=== PATIENT | female | born 1930 | race Caucasian/White ===

== ENCOUNTER 2017-09-27 12:41 | Inpatient (IN) | payer OTHER, MEDICARE ==
[~2017-09-27] VITALS: Ht 157.5 cm; Wt 44.9 kg
--- NOTE | 2017-09-27 13:11 | EMERGENCY ROOM VISIT NOTE ---
History Report prepared by Baljeet: David Ying Under the Supervision of: Dr. Poncho Esteban D.O. First contact with patient: 12:51 Chief Complaint: STROKE SYMPTOMS Stated Complaint: STROKE SYMPTOMS Nursing Triage Summary: pt having tia or stroke sx fell at 1100 today was unresponsive for approx 10 minutes after falling, pt having asphasia after falling. hit bridge of nose on step no loc. History of Present Illness The patient is an 87 year old female with a history of a TIA who presents to the Emergency Room via EMS with an episode of stroke symptoms that occurred around 2 hours ago. Per EMS, they were called to the patient's home for a fall, and the patient was noted by the daughter to be unresponsive and confused, but when EMS arrived, the patient was completely awake, alert, and oriented. The patient states that she was completely fine last night, without any headaches. She says that she woke up at her normal time this morning, and got dressed and had breakfast without difficulty. She notes that around 3 hours ago she then went downstairs to go to the bathroom and get washed up. The patient says as she was going down the stairs, while on the second step to the bottom, the towel on her shoulder fell and threw her off-balance, and then the patient fell onto the carpet floor. She states that she hurt her left hand and nose on the fall, but now only the left hand is bothering her. She denies any nose bleeds on the fall. The patient states that she got up alright, and then got washed up in the bathroom. She says that after being in the bathroom, she was tired so she sat on the chair. However, shortly thereafter, the patient's daughter found the patient sitting on the chair open-eyed and sleeping around 2 hours ago. Per the patient's daughter, she tapped on the patient's cheeks, but the patient remained open-eyed but unresponsive. The patient's breathing was noted to be loud. This episode lasted around 10 to 12 minutes, and was noted to have drool coming out the left side of her face. The patient's daughter called 911 when she found the patient. When the patient came around, the patient started to put words together and could smile, without any facial droop. However, when EMS arrived, the patient became 100%, but per the patient's daughter, the patient seemed "off and not herself". The patient was also noted to have episodes of aphasia, where the wrong words were coming out of the patient's mouth. Currently , the patient is "85% mom" per the patient's daughter, and the patient is back to baseline. The patient denies any headaches, fevers, chills, neck pain, back pain, or hip pain. She notes that she is not on any blood thinners, and takes no medications daily. The patient states that she drinks occasional alcohol. Source of History: patient, family Onset: 2 hours ago Position: other (global - stroke symptoms) Timing: other (episode) Associated Symptoms: No fevers, No chills, No headache, No neck pain, No back pain (or hip pain) Note: Associated symptoms: Fall this morning. Was found by daughter unresponsive, sleeping, with eyes open. Aphasia episodes noted. No facial droop. Review of Systems See HPI for pertinent positives & negatives. A total of 10 systems reviewed and were otherwise negative. Past Medical & Surgical Medical Problems: (1) Macular degeneration (2) TIA (transient ischemic attack) Family History Family history omitted secondary to patient's advanced age. Social History Smoking Status: Never Smoker Smokeless Tobacco Use: No Drug Use: none Housing Status: lives alone Occupation Status: retired Current/Historical Medications Scheduled Multiple Vitamins W/ Minerals (Centrum Silver Adult 50+), 1 TAB PO DAILY Allergies Coded Allergies: Cefazolin (Unverified Adverse Reaction, Intermediate, RASH, 09/27/17) Physical Exam Vital Signs Date Time Temp Pulse Resp B/P (MAP) Pulse Ox O2 Delivery O2 Flow Rate FiO2 09/27/17 18:22 71 18 183/86 96 09/27/17 16:41 73 16 183/86 96 Room Air 09/27/17 14:50 82 18 189/90 95 Room Air 09/27/17 14:50 95 Room Air 09/27/17 12:45 36.4 99 18 188/87 100 Room Air Physical Exam GENERAL: Patient is awake, alert, and in no acute distress. Patient is resting comfortably and showing no signs of anxiety EYES: The conjunctivae are clear. The pupils are round and reactive. EARS, NOSE, MOUTH AND THROAT: There was ecchymosis and swelling over the bridge of the nose. No epistaxis appreciated. NECK: The neck is nontender and supple. There was a bruit noted over the right carotid. No bruit noted over left. RESPIRATORY: Normal respiratory effort is noted there is no evidence of wheezing rhonchi or rales CARDIOVASCULAR: Regular rate and rhythm noted to auscultation. No definite murmur appreciated. GASTROINTESTINAL: The abdomen is soft. Bowel sounds are present in all quadrants. Abdomen is nontender BACK: No midline tenderness or or step-off noted range of motion in flexion extension as well as rotation no signs of muscle spasm noted MUSCULOSKELETAL/EXTREMITIES: There is no evidence of gross deformity full range of motion is noted in the hips and shoulders SKIN: There was ecchymosis and swelling over the left 5th metacarpal. There is no obvious evidence of any rash. There are no petechiae, pallor or cyanosis noted. NEUROLOGIC: Patient is awake alert and oriented x3 strength is symmetric patellar reflexes are 2+ bilaterally Medical Decision & Procedures ER Provider Diagnostic Interpretation: Radiology results as stated below per my review and radiologist interpretation: FACIAL BONES-MXILLOFAC WITHOUT CLINICAL HISTORY: 87 years-old Female presenting with fall. TECHNIQUE: Multidetector CT of the face was performed without the use of intravenous contrast. IV contrast: None. A dose lowering technique was used consistent with the principles of ALARA (as low as reasonably achievable). COMPARISON: None. CT DOSE (mGy.cm): The estimated cumulative dose is 1003.11 mGy.cm. FINDINGS: Surg Rn topogram: Unremarkable. Polypoid mucosal thickening in the left maxillary sinus. Paranasal sinuses and mastoid air cells otherwise clear. Bilateral [place] lenses are absent. Orbits otherwise normal. Remaining soft tissues of the face within normal limits allowing for noncontrast technique. Evidence of a torus palatinus. Degenerative changes of the cervical spine. Limited intracranial evaluation within normal limits. IMPRESSION: No acute osseous injury of the face. Electronically signed by: Heath Kinney M.D. 09/27/2017 1:56 PM Dictated Date/Time: 09/27/2017 1:53 PM HEAD WITHOUT CONTRAST (CT) CLINICAL HISTORY: 87 years-old Female with Stroke. Acute strokelike symptoms TECHNIQUE: Multiple axial CT images of the head were obtained without contrast. A dose lowering technique was utilized adhering to the principles of ALARA. COMPARISON: CT cervical spine of same day. FINDINGS: No acute intracranial hemorrhage, midline shift, intracranial mass, hydrocephalus, territorial ischemia or abnormal extra-axial collection. Mild brain atrophy. Ill-defined areas of low attenuation within the subcortical and periventricular white matter suggests chronic microvascular ischemic changes. Vascular calcifications are seen at the level of the skull base. Focal 4 mm area of low-attenuation of the left lentiform nucleus on image 10 series 2. The calvarium is intact. The paranasal sinuses, mastoid air cells, and middle ear cavities are clear. Prior bilateral cataract repair. IMPRESSION: 1. No acute intracranial hemorrhage, midline shift or territorial ischemia. 2. Mild atrophy with chronic microvascular ischemic changes. 4 mm area of low-attenuation involving the left lentiform nucleus suggests age-indeterminate lacunar infarction. The above report was generated using voice recognition software. It may contain grammatical, syntax or spelling errors. Electronically signed by: Myles Ty M.D. 09/27/2017 1:58 PM Dictated Date/Time: 09/27/2017 1:54 PM L HAND MIN 3 VIEWS ROUTINE CLINICAL HISTORY: Left hand pain status post trauma COMPARISON: None. DISCUSSION: The bones are osteopenic. There is an old distal radial deformity. There are moderate arthritic changes present the level the first carpometacarpal joint, metacarpal phalangeal joints, and interphalangeal joints. There is an acute oblique/spiral fracture of the midshaft of the fifth metacarpal demonstrating 3.7 mm of maximal displacement. IMPRESSION: Acute oblique/spiral fracture involving the midshaft of the fifth metacarpal Electronically signed by: Luisito Banks M.D. 09/27/2017 1:24 PM Dictated Date/Time: 09/27/2017 1:23 PM CHEST ONE VIEW PORTABLE CLINICAL HISTORY: 87 years-old Female presenting with Stroke. TECHNIQUE: Portable upright AP view of the chest was obtained. COMPARISON: None. FINDINGS: Atherosclerosis of aortic arch. Cardiac silhouette normal in size. Mild hyperinflation suggested. Lungs and pleural spaces clear. Scoliotic curvature of the thoracic spine. Degenerative changes of the right shoulder. Upper abdomen normal. IMPRESSION: 1. Mild hyperinflation suggested, which may reflect underlying emphysema. No other evidence of acute cardiopulmonary disease. Electronically signed by: Heath Kinney M.D. 09/27/2017 1:30 PM Dictated Date/Time: 09/27/2017 1:[address] OF THE CERVICAL SPINE CLINICAL HISTORY: Neck pain status post trauma COMPARISON STUDY: No previous studies for comparison. CT DOSE: TECHNIQUE: CT scan of the cervical spine was performed from the skull base to the thoracic inlet. Images are reviewed in the axial, sagittal, and coronal planes. IV contrast was not administered for this examination. A dose lowering technique was utilized adhering to the principles of ALARA. FINDINGS: Visualized portions lung apices reveal no evidence of pneumothorax. There are nonspecific biapical nodular opacities, likely representing areas of apical scarring. The prevertebral soft tissues are normal. No fractures or traumatic subluxations are visualized. There are multilevel degenerative changes. There is fusion of the C7 and T1 posterior elements. There is 3 mm of anterior subluxation of C4 on C5. This is felt to be arthritic. There is a disc osteophyte complex at the C5-6 level. IMPRESSION: No evidence of acute fracture or traumatic subluxation. Electronically signed by: Luisito Banks M.D. 09/27/2017 1:52 PM Dictated Date/Time: 09/27/2017 1:49 PM Laboratory Results 09/27/17 13:23 Red Blood Count 4.34, Mean Corpuscular Volume 89.4, Mean Corpuscular Hemoglobin 30.4, Mean Corpuscular Hemoglobin Concent 34.0, Mean Platelet Volume 8.8, Neutrophils (%) (Auto) 67.7, Lymphocytes (%) (Auto) 18.5, Monocytes (%) (Auto) 11.8, Eosinophils (%) (Auto) 1.4, Basophils (%) (Auto) 0.3, Neutrophils # (Auto ) 5.42, Lymphocytes # (Auto) 1.48, Monocytes # (Auto) 0.94, Eosinophils # (Auto ) 0.11, Basophils # (Auto) 0.02 09/27/17 13:23 Test 09/27/17 13:23 09/27/17 13:48 White Blood Count 7.99 K/uL (4.8-10.8) Red Blood Count 4.34 M/uL (4.2-5.4) Hemoglobin 13.2 g/dL (12.0-16.0) Hematocrit 38.8 % (37-47) Mean Corpuscular Volume 89.4 fL (80-100) Mean Corpuscular Hemoglobin 30.4 pg (25-34) Mean Corpuscular Hemoglobin Concent 34.0 g/dl (32-36) Platelet Count 278 K/uL (130-400) Mean Platelet Volume 8.8 fL (7.4-10.4) Neutrophils (%) (Auto) 67.7 % Lymphocytes (%) (Auto) 18.5 % Monocytes (%) (Auto) 11.8 % Eosinophils (%) (Auto) 1.4 % Basophils (%) (Auto) 0.3 % Neutrophils # (Auto) 5.42 K/uL (1.4-6.5) Lymphocytes # (Auto) 1.48 K/uL (1.2-3.4) Monocytes # (Auto) 0.94 K/uL (0.11-0.59) Eosinophils # (Auto) 0.11 K/uL (0-0.5) Basophils # (Auto) 0.02 K/uL (0-0.2) RDW Standard Deviation 45.8 fL (36.4-46.3) RDW Coefficient of Variation 14.1 % (11.5-14.5) Immature Granulocyte % (Auto) 0.3 % Immature Granulocyte # (Auto) 0.02 K/uL (0.00-0.02) Prothrombin Time 9.7 SECONDS (9.0-12.0) Prothromb Time International Ratio 0.9 (0.9-1.1) Activated Partial Thromboplast Time 20.8 SECONDS (21.0-31.0) Partial Thromboplastin Ratio 0.8 Anion Gap 7.0 mmol/L (3-11) Est Creatinine Clear Calc Drug Dose 45.4 ml/min Estimated GFR () 93.0 Estimated GFR (Non- 80.2 BUN/Creatinine Ratio 26.6 (10-20) Calcium Level 8.9 mg/dl (8.5-10.1) Magnesium Level 2.3 mg/dl (1.8-2.4) Total Creatine Kinase 137 U/L (26-192) Creatine Kinase MB 4.8 ng/ml (0.5-3.6) Creatine Kinase MB Ratio 3.5 (0-3.0) Troponin I < 0.015 ng/ml (0-0.045) Urine Color YELLOW Urine Appearance CLOUDY (CLEAR) Urine pH 8.0 (4.5-7.5) Urine Specific Anna 1.011 (1.000-1.030) Urine Protein NEG (NEG) Urine Glucose (UA) NEG (NEG) Urine Ketones NEG (NEG) Urine Occult Blood NEG (NEG) Urine Nitrite NEG (NEG) Urine Bilirubin NEG (NEG) Urine Urobilinogen NEG (NEG) Urine Leukocyte Esterase NEG (NEG) Urine WBC (Auto) 0 /hpf (0-5) Urine RBC (Auto) 0-4 /hpf (0-4) Urine Hyaline Casts (Auto) 0 /lpf (0-5) Urine Epithelial Cells (Auto) 10-20 /lpf (0-5) Urine Bacteria (Auto) NEG (NEG) Laboratory results per my review. Medications Administered Medications (Trade) Dose Ordered Sig/Gaudencio Route Start Time Stop Time Status Last Admin Dose Admin Aspirin (Aspirin Chew) 324 mg NOW STAT PO 09/27/17 15:24 09/27/17 15:25 DC 09/27/17 15:48 324 MG ECG Indication: weakness Rate (beats per minute): 69 Rhythm: normal sinus Findings: no ectopy, other (no acute ST segment abnormalities) Comparison ECG Date: no prior available ED Course 1252: The patient was evaluated in room A2. A complete history and physical examination were performed. 1437: I reevaluated the patient and talked to her family. 1510: Upon reevaluation, the patient is resting. I discussed results and treatment plan with her. She verbalizes agreement and understanding. The patient will be evaluated for further management and care. 1512: I discussed the patient with Dr. Rubio - [facility] it associate - she will evaluate the patient for further treatment. Medical Decision Differential diagnosis: Etiologies such as metabolic, infection, hypo/hyperglycemia, electrolyte abnormalities, cardiac sources, intracerebral event, toxicologic, neurologic, as well as others were entertained. Nursing notes reviewed. Additional history is obtained from the patient's daughter. The patient is an 87-year-old female who presented to the emergency department for a fall. The patient states that she was walking down her steps when she had a fall. She states she a very dizzy and felt off balance. The patient was seen by her daughter afterwards and she appeared listless and had some degree of dysarthria. The patient presents to the emergency department at this time in her baseline mental status according to her daughter. A stroke alert was not called because the patient did not have symptoms at this time. The patient did have an injury to her left hand and also facial contusion. The patient was given aspirin in the emergency department. I discussed the patient's laboratory and radiographic studies with her. She appears to have either a bruit in her right carotid or a murmur that is being radiated into her neck. It is unclear if this time because I cannot definitely auscultate a murmur over her heart. The patient's family member state that she did have carotid Dopplers over the last few years which she was told were negative. I discussed the patient's condition with her and her family members at this time I do feel she may be having stuttering symptoms of TIA. The patient continues to have no complaint while she is in the emergency apartment. I discussed her condition with the on- call [facility] hospitalist group. They've agreed to evaluate the patient in the emergency department for further management and disposition. Medication Reconcilliation Current Medication List: was personally reviewed by me Blood Pressure Screening Patient's blood pressure: Elevated blood pressure Referred to hospitalist. Consults Time Called: 1510 Consulting Physician: Dr. Ramiro Cerna it associate Returned Call: 1512 I discussed the patient with Dr. Ramiro Cerna it associate - she will evaluate the patient for further treatment. Impression Primary Impression: TIA (transient ischemic attack) Additional Impressions: Fall Facial contusion Fracture of fifth metacarpal bone of left hand Scribe Attestation The scribe's documentation has been prepared under my direction and personally reviewed by me in its entirety. I confirm that the note above accurately reflects all work, treatment, procedures, and medical decision making performed by me. Departure Information Dispostion Being Evaluated By Hospitalist Referrals No Doctor, Assigned (PCP) Patient Instructions My [facility] Stroke History Time Last Known Well Currently asymptomatic Stroke t-PA Criteria Reviewed Does NOT meet criteria for t-PA Reason t-PA Not Given Treatment not indicated Strict Exclusion Criteria Normal neurologic examination Problem Qualifiers Primary Impression: TIA (transient ischemic attack) Transient cerebral ischemia type: unspecified Qualified Codes: G45.9 - Transient cerebral ischemic attack, unspecified Additional Impressions: Fall Encounter type: initial encounter Qualified Codes: W19.XXXA - Unspecified fall, initial encounter Facial contusion Encounter type: initial encounter Qualified Codes: S00.83XA - Contusion of other part of head, initial encounter Fracture of fifth metacarpal bone of left hand Encounter type: initial encounter Fracture type: closed Metacarpal location : unspecified portion of metacarpal Fracture alignment: nondisplaced Qualified Codes: S62.307A - Unspecified fracture of fifth metacarpal bone, left hand, initial encounter for closed fracture
--- NOTE | 2017-09-27 13:25 | DIAGNOSTIC IMAGING REPORT ---
L HAND MIN 3 VIEWS ROUTINE CLINICAL HISTORY: Left hand pain status post trauma COMPARISON: None. DISCUSSION: The bones are osteopenic. There is an old distal radial deformity. There are moderate arthritic changes present the level the first carpometacarpal joint, metacarpal phalangeal joints, and interphalangeal joints. There is an acute oblique/spiral fracture of the midshaft of the fifth metacarpal demonstrating 3.7 mm of maximal displacement. IMPRESSION: Acute oblique/spiral fracture involving the midshaft of the fifth metacarpal Electronically signed by: Luisito Banks M.D. 09/27/2017 1:24 PM Dictated Date/Time: 09/27/2017 1:23 PM
--- NOTE | 2017-09-27 13:31 | DIAGNOSTIC IMAGING REPORT ---
CHEST ONE VIEW PORTABLE CLINICAL HISTORY: 87 years-old Female presenting with Stroke. TECHNIQUE: Portable upright AP view of the chest was obtained. COMPARISON: None. FINDINGS: Atherosclerosis of aortic arch. Cardiac silhouette normal in size. Mild hyperinflation suggested. Lungs and pleural spaces clear. Scoliotic curvature of the thoracic spine. Degenerative changes of the right shoulder. Upper abdomen normal. IMPRESSION: 1. Mild hyperinflation suggested, which may reflect underlying emphysema. No other evidence of acute cardiopulmonary disease. Electronically signed by: Heath Kinney M.D. 09/27/2017 1:30 PM Dictated Date/Time: 09/27/2017 1:29 PM
[2017-09-27 13:48] LABS: BASO % 0.3 %; BASO ABS # 0.02 K/uL (0-0.2); EOS % 1.4 %; EOS ABS # 0.11 K/uL (0-0.5); HEMATOCRIT 38.8 % (37-47); HEMOGLOBIN 13.2 g/dL (12.0-16.0); IG# 0.02 K/uL (0.00-0.02); LYMPH % 18.5 %; LYMPH ABS # 1.48 K/uL (1.2-3.4); MEAN CELL VOLUME 89.4 fL (80-100); MEAN CORPUSCULAR HEMOGLOBIN 30.4 pg (25-34); MEAN PLATELET VOLUME 8.8 fL (7.4-10.4); MONO % 11.8 %; MONO ABS # 0.94 K/uL (0.11-0.59); NEUT % 67.7 %; NEUT ABS # 5.42 K/uL (1.4-6.5); PLATELET COUNT 278 K/uL (130-400); RED CELL DISTRIBUTION WIDTH CV 14.1 % (11.5-14.5); RED CELL DISTRIBUTION WIDTH SD 45.8 fL (36.4-46.3); WHITE BLOOD COUNT 7.99 K/uL (4.8-10.8)
--- NOTE | 2017-09-27 13:53 | DIAGNOSTIC IMAGING REPORT ---
CT OF THE CERVICAL SPINE CLINICAL HISTORY: Neck pain status post trauma COMPARISON STUDY: No previous studies for comparison. CT DOSE: TECHNIQUE: CT scan of the cervical spine was performed from the skull base to the thoracic inlet. Images are reviewed in the axial, sagittal, and coronal planes. IV contrast was not administered for this examination. A dose lowering technique was utilized adhering to the principles of ALARA. FINDINGS: Visualized portions lung apices reveal no evidence of pneumothorax. There are nonspecific biapical nodular opacities, likely representing areas of apical scarring. The prevertebral soft tissues are normal. No fractures or traumatic subluxations are visualized. There are multilevel degenerative changes. There is fusion of the C7 and T1 posterior elements. There is 3 mm of anterior subluxation of C4 on C5. This is felt to be arthritic. There is a disc osteophyte complex at the C5-6 level. IMPRESSION: No evidence of acute fracture or traumatic subluxation. Electronically signed by: Luisito Banks M.D. 09/27/2017 1:52 PM Dictated Date/Time: 09/27/2017 1:49 PM
[2017-09-27 13:56] LABS: INR 0.9 (0.9-1.1); PTT PATIENT 20.8 SECONDS (21.0-31.0)
--- NOTE | 2017-09-27 13:58 | DIAGNOSTIC IMAGING REPORT ---
FACIAL BONES-MXILLOFAC WITHOUT CLINICAL HISTORY: 87 years-old Female presenting with fall. TECHNIQUE: Multidetector CT of the face was performed without the use of intravenous contrast. IV contrast: None. A dose lowering technique was used consistent with the principles of ALARA (as low as reasonably achievable). COMPARISON: None. CT DOSE (mGy.cm): The estimated cumulative dose is 1003.11 mGy.cm. FINDINGS: Gambling Monitor topogram: Unremarkable. Polypoid mucosal thickening in the left maxillary sinus. Paranasal sinuses and mastoid air cells otherwise clear. Bilateral [place] lenses are absent. Orbits otherwise normal. Remaining soft tissues of the face within normal limits allowing for noncontrast technique. Evidence of a torus palatinus. Degenerative changes of the cervical spine. Limited intracranial evaluation within normal limits. IMPRESSION: No acute osseous injury of the face. Electronically signed by: Heath Kinney M.D. 09/27/2017 1:56 PM Dictated Date/Time: 09/27/2017 1:53 PM
--- NOTE | 2017-09-27 13:59 | DIAGNOSTIC IMAGING REPORT ---
HEAD WITHOUT CONTRAST (CT) CLINICAL HISTORY: 87 years-old Female with Stroke. Acute strokelike symptoms TECHNIQUE: Multiple axial CT images of the head were obtained without contrast. A dose lowering technique was utilized adhering to the principles of ALARA. COMPARISON: CT cervical spine of same day. FINDINGS: No acute intracranial hemorrhage, midline shift, intracranial mass, hydrocephalus, territorial ischemia or abnormal extra-axial collection. Mild brain atrophy. Ill-defined areas of low attenuation within the subcortical and periventricular white matter suggests chronic microvascular ischemic changes. Vascular calcifications are seen at the level of the skull base. Focal 4 mm area of low-attenuation of the left lentiform nucleus on image 10 series 2. The calvarium is intact. The paranasal sinuses, mastoid air cells, and middle ear cavities are clear. Prior bilateral cataract repair. IMPRESSION: 1. No acute intracranial hemorrhage, midline shift or territorial ischemia. 2. Mild atrophy with chronic microvascular ischemic changes. 4 mm area of low-attenuation involving the left lentiform nucleus suggests age-indeterminate lacunar infarction. The above report was generated using voice recognition software. It may contain grammatical, syntax or spelling errors. Electronically signed by: Myles Ty M.D. 09/27/2017 1:58 PM Dictated Date/Time: 09/27/2017 1:54 PM
[2017-09-27 14:08] LABS: BLOOD UREA NITROGEN 17 mg/dl (7-18); CALCIUM 8.9 mg/dl (8.5-10.1); CARBON DIOXIDE 28 mmol/L (21-32); CREATININE 0.64 mg/dl (0.60-1.20); GLUCOSE 103 mg/dl (70-99); POTASSIUM 3.7 mmol/L (3.5-5.1); SODIUM 129 mmol/L (136-145)
[2017-09-27 14:13] LABS: CKMB 4.8 ng/ml (0.5-3.6)
[2017-09-27] MEDS ORDERED: ASPIRIN 81 MG CHEW PO STA (15:24)
[2017-09-27] MEDS ORDERED: POLYETHYLENE (MIRALAX) 17 GM PACK PO PRN (16:45)
[2017-09-27] MEDS ORDERED: ONDANSETRON INJ 2 MG/ML 2 ML VIAL IV PRN (16:45)
[2017-09-27] MEDS ORDERED: ALUMINUM/MAGNESIUM/SIMETH (MAALOX MAX) 30 ML UDC PO PRN (16:45)
[2017-09-27] MEDS ORDERED: PHARMACIST DISCHARGE MED REC CONSULT PRN (16:45)
[2017-09-27] MEDS ORDERED: ACETAMINOPHEN 325 MG TAB PO PRN (16:45)
[2017-09-27] MEDS ORDERED: HydrALAZINE HCL 20 MG/ML VIAL IV. PRN (16:45)
[2017-09-27] MEDS ORDERED: MAGNESIUM HYDROXIDE SUSP 30 ML UDC PO PRN (16:45)
[2017-09-27] MEDS ORDERED: PATIENT'S ALLERGY INFO NEEDS ENTERED SCH (17:15)
[2017-09-27] MEDS ORDERED: MULT-845 PO (17:42)
--- NOTE | 2017-09-27 18:11 | History and Physical ---
History & Physical Date & Time of Service: Sep 27, 2017 at 17:56 Chief Complaint: Stroke Symptoms Primary Care Physician: Henok Calero MD History of Present Illness Source: patient, family Ms. Yanez is an 87 year old female with a history of a TIA in May 2017 who presented to [facility] following a ten minute episode of aphasia that occurred after a mechanical fall. She states she was walking down the steps earlier today, when she dropped her towel, and fell down the second step, landing face first onto the floor. She states she was able to get up after this, and reports going about her daily activities. Her daughter reports that later, she found her mother sitting in a chair with her eyes open, but unresponsive. She states that this lasted for approximately 10 minutes. She denies any seizure like activity, urinary or fecal incontinence. She states that after this, she had intermittent aphasia, where Ms. Yanez knew what she wanted to say but was unable to form complete sentences and express herself. She was able to answer questions with appropriate one word responses but not longer sentences. Ms. Yanez states she had a similar episode in May 2017, where she had a 10-15 minute episode of aphasia, where she was unable to express herself clearly despite knowing what she wanted to say. This was diagnosed as a TIA but her PCP. At this time, Ms. Yanez denies headache, focal weakness, double vision, gait difficulties or facial droop. She does report her nose is sore and is swollen after having fallen onto it. Of note, she is currently not on any medications at home. Past Medical/Surgical History Medical Problems: (1) Macular degeneration Status: Chronic (2) TIA (transient ischemic attack) Status: Resolved Social History Smoking Status: Never Smoker Smokeless Tobacco Use: No Drug Use: none Occupational Status: retired Allergies Coded Allergies: Cefazolin (Unverified Adverse Reaction, Intermediate, RASH, 09/27/17) Home Medications Scheduled Multiple Vitamins W/ Minerals (Centrum Silver Adult 50+), 1 TAB PO DAILY Review of Systems Constitutional: No fever, No chills Eyes: No worsening of vision, No eye pain Respiratory: No cough, No sputum, No wheezing, No shortness of breath Cardiovascular: No chest pain Abdomen: No pain, No nausea, No vomiting, No diarrhea Genitourinary - Female: + urinary frequency Neurologic: No memory loss, No weakness, No balance problems Physical Exam Vital Signs Date Time Temp Pulse Resp B/P (MAP) Pulse Ox O2 Delivery O2 Flow Rate FiO2 09/27/17 16:41 73 16 183/86 96 Room Air 09/27/17 14:50 82 18 189/90 95 Room Air 09/27/17 14:50 95 Room Air 09/27/17 12:45 36.4 99 18 188/87 100 Room Air General Appearance: WD/WN, no apparent distress Head: normocephalic, atraumatic Eyes: normal inspection, PERRL, EOMI Respiratory/Chest: chest non-tender, lungs clear, normal breath sounds, no respiratory distress, no accessory muscle use Cardiovascular: regular rate, rhythm, no edema, no gallop, no JVD, no murmur, normal peripheral pulses Abdomen/GI: normal bowel sounds, non tender, soft, no organomegaly, no pulsatile mass Extremities/Musculoskelatal: normal inspection, no calf tenderness, normal capillary refill, no pedal edema, normal range of motion, + pertinent finding ( left hand in splint) 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, no motor/sensory deficits, alert, normal mood/affect, oriented x 3 Diagnostics Laboratory Results Results Past 24 Hours Test 09/27/17 13:23 09/27/17 13:48 Range/Units White Blood Count 7.99 4.8-10.8 K/uL Red Blood Count 4.34 4.2-5.4 M/uL Hemoglobin 13.2 12.0-16.0 g/dL Hematocrit 38.8 37-47 % Mean Corpuscular Volume 89.4 80-100 fL Mean Corpuscular Hemoglobin 30.4 25-34 pg Mean Corpuscular Hemoglobin Concent 34.0 32-36 g/dl Platelet Count 278 130-400 K/uL Mean Platelet Volume 8.8 7.4-10.4 fL Neutrophils (%) (Auto) 67.7 % Lymphocytes (%) (Auto) 18.5 % Monocytes (%) (Auto) 11.8 % Eosinophils (%) (Auto) 1.4 % Basophils (%) (Auto) 0.3 % Neutrophils # (Auto) 5.42 1.4-6.5 K/uL Lymphocytes # (Auto) 1.48 1.2-3.4 K/uL Monocytes # (Auto) 0.94 0.11-0.59 K/uL Eosinophils # (Auto) 0.11 0-0.5 K/uL Basophils # (Auto) 0.02 0-0.2 K/uL RDW Standard Deviation 45.8 36.4-46.3 fL RDW Coefficient of Variation 14.1 11.5-14.5 % Immature Granulocyte % (Auto) 0.3 % Immature Granulocyte # (Auto) 0.02 0.00-0.02 K/uL Prothrombin Time 9.7 9.0-12.0 SECONDS Prothromb Time International Ratio 0.9 0.9-1.1 Activated Partial Thromboplast Time 20.8 21.0-31.0 SECONDS Partial Thromboplastin Ratio 0.8 Sodium Level 129 136-145 mmol/L Potassium Level 3.7 3.5-5.1 mmol/L Chloride Level 94 98-107 mmol/L Carbon Dioxide Level 28 21-32 mmol/L Anion Gap 7.0 3-11 mmol/L Blood Urea Nitrogen 17 7-18 mg/dl Creatinine 0.64 0.60-1.20 mg/dl Est Creatinine Clear Calc Drug Dose 45.4 ml/min Estimated GFR () 93.0 Estimated GFR (Non- 80.2 BUN/Creatinine Ratio 26.6 10-20 Random Glucose 103 70-99 mg/dl Calcium Level 8.9 8.5-10.1 mg/dl Magnesium Level 2.3 1.8-2.4 mg/dl Total Creatine Kinase 137 26-192 U/L Creatine Kinase MB 4.8 0.5-3.6 ng/ml Creatine Kinase MB Ratio 3.5 0-3.0 Troponin I < 0.015 0-0.045 ng/ml Urine Color YELLOW Urine Appearance CLOUDY CLEAR Urine pH 8.0 4.5-7.5 Urine Specific Steger 1.011 1.000-1.030 Urine Protein NEG NEG Urine Glucose (UA) NEG NEG Urine Ketones NEG NEG Urine Occult Blood NEG NEG Urine Nitrite NEG NEG Urine Bilirubin NEG NEG Urine Urobilinogen NEG NEG Urine Leukocyte Esterase NEG NEG Urine WBC (Auto) 0 0-5 /hpf Urine RBC (Auto) 0-4 0-4 /hpf Urine Hyaline Casts (Auto) 0 0-5 /lpf Urine Epithelial Cells (Auto) 10-20 0-5 /lpf Urine Bacteria (Auto) NEG NEG Diagnostic Radiology FACIAL BONES-MXILLOFAC WITHOUT CLINICAL HISTORY: 87 years-old Female presenting with fall. TECHNIQUE: Multidetector CT of the face was performed without the use of intravenous contrast. IV contrast: None. A dose lowering technique was used consistent with the principles of ALARA (as low as reasonably achievable). COMPARISON: None. CT DOSE (mGy.cm): The estimated cumulative dose is 1003.11 mGy.cm. FINDINGS: Mainstreaming Facilitator topogram: Unremarkable. Polypoid mucosal thickening in the left maxillary sinus. Paranasal sinuses and mastoid air cells otherwise clear. Bilateral jena lenses are absent. Orbits otherwise normal. Remaining soft tissues of the face within normal limits allowing for noncontrast technique. Evidence of a torus palatinus. Degenerative changes of the cervical spine. Limited intracranial evaluation within normal limits. IMPRESSION: No acute osseous injury of the face. HEAD WITHOUT CONTRAST (CT) CLINICAL HISTORY: 87 years-old Female with Stroke. Acute strokelike symptoms TECHNIQUE: Multiple axial CT images of the head were obtained without contrast. A dose lowering technique was utilized adhering to the principles of ALARA. COMPARISON: CT cervical spine of same day. FINDINGS: No acute intracranial hemorrhage, midline shift, intracranial mass, hydrocephalus, territorial ischemia or abnormal extra-axial collection. Mild brain atrophy. Ill-defined areas of low attenuation within the subcortical and periventricular white matter suggests chronic microvascular ischemic changes. Vascular calcifications are seen at the level of the skull base. Focal 4 mm area of low-attenuation of the left lentiform nucleus on image 10 series 2. The calvarium is intact. The paranasal sinuses, mastoid air cells, and middle ear cavities are clear. Prior bilateral cataract repair. IMPRESSION: 1. No acute intracranial hemorrhage, midline shift or territorial ischemia. 2. Mild atrophy with chronic microvascular ischemic changes. 4 mm area of low-attenuation involving the left lentiform nucleus suggests age-indeterminate lacunar infarction. L HAND MIN 3 VIEWS ROUTINE CLINICAL HISTORY: Left hand pain status post trauma COMPARISON: None. DISCUSSION: The bones are osteopenic. There is an old distal radial deformity. There are moderate arthritic changes present the level the first carpometacarpal joint, metacarpal phalangeal joints, and interphalangeal joints. There is an acute oblique/spiral fracture of the midshaft of the fifth metacarpal demonstrating 3.7 mm of maximal displacement. IMPRESSION: Acute oblique/spiral fracture involving the midshaft of the fifth metacarpal CHEST ONE VIEW PORTABLE CLINICAL HISTORY: 87 years-old Female presenting with Stroke. TECHNIQUE: Portable upright AP view of the chest was obtained. COMPARISON: None. FINDINGS: Atherosclerosis of aortic arch. Cardiac silhouette normal in size. Mild hyperinflation suggested. Lungs and pleural spaces clear. Scoliotic curvature of the thoracic spine. Degenerative changes of the right shoulder. Upper abdomen normal. IMPRESSION: 1. Mild hyperinflation suggested, which may reflect underlying emphysema. No other evidence of acute cardiopulmonary disease. CT OF THE CERVICAL SPINE CLINICAL HISTORY: Neck pain status post trauma COMPARISON STUDY: No previous studies for comparison. CT DOSE: TECHNIQUE: CT scan of the cervical spine was performed from the skull base to the thoracic inlet. Images are reviewed in the axial, sagittal, and coronal planes. IV contrast was not administered for this examination. A dose lowering technique was utilized adhering to the principles of ALARA. FINDINGS: Visualized portions lung apices reveal no evidence of pneumothorax. There are nonspecific biapical nodular opacities, likely representing areas of apical scarring. The prevertebral soft tissues are normal. No fractures or traumatic subluxations are visualized. There are multilevel degenerative changes. There is fusion of the C7 and T1 posterior elements. There is 3 mm of anterior subluxation of C4 on C5. This is felt to be arthritic. There is a disc osteophyte complex at the C5-6 level. IMPRESSION: No evidence of acute fracture or traumatic subluxation. Normal EKG (Sinus rhythm at 69 bpm, no ischemic changes) Impression Assessment and Plan Ms. Yanez is an 87 year old female with a history of a TIA in May 2017 who presented to [facility] following a ten minute episode of aphasia that occurred after a mechanical fall. Aphasia - possible TIA - consult neurology - CT brain showed - no acute intracranial hemorrhage, but a 4 mm area of low- attenuation involving the left lentiform nucleus suggesting an age- indeterminate lacunar infarction. - ordered MRI combo - Fasting lipid panel and HbA1c - started daily aspirin and 40mg of atorvastatin to address risk factors - allowing for permissive hypertension, but 10mg IV hydralazine ordered prn for systolic BP >180 and diastolic >110 Mechanical Fall - CT C-spine negative, Maxillofacial CT negative - will monitor for symptoms Left hand pain - Acute oblique/spiral fracture involving the midshaft of the fifth metacarpal - hand currently in splint, no pain reported Code: will ascertain tomorrow AM Disposition: admitted to telemetry DVT Prophylaxis: SCDs Resident Physician Supervision Note: I interviewed and examined the patient. Discussed with Dr. Vanessa Escamilla and agree with findings and plan as documented in the note. Any exceptions or clarifications are listed here: None Patient presents with a period of aphasia and subsequent fall sustaining a fractured her left fifth metacarpal. Initial CT in the ER shows an age- indeterminate lacunar infarction.. She supports this could possibly have been her [place] episode. She has no current deficits of speech or physical exam Her vital signs show systolic hypertension Cranial nerves II through XII are intact speech is fluent cranial nerve testing appears be intact there is no palmar drift or dysmetria lower extremities and upper extremities are equal symmetric with strength TIA fall with traumatic left metacarpal fracture For the possibility this was a recurrent stroke or TIA patient brought for facility under stroke order set she does not meet criteria for TPA, she'll have a neurology consult MRI she'll be instructed on aspirin therapy and likely high dose statin given the fact that she has had a previous stroke. We will allow permissive hypertension but control if above 180/95 For metacarpal fracture she is splinted likely will need orthopedic follow-up and pain control Documented By: Efrain Ramirez VTE Prophylaxis VTE Risk Assessment Done? Y/N: Yes Risk Level: Moderate Resident Tracking Resident Involvement: Resident Care Provided Care Provided: Adult Hospital Medicine
[2017-09-27 18:50] VITALS: BP 152/83; PULSE 90; TEMP 36.6; O2SAT 95
[2017-09-27 19:23] VITALS: BP_SYST 152; BP_SYST 183; BP_DIAS 83; BP_DIAS 86; PULSE 90; TEMP 36.4; TEMP 36.6; O2SAT 96; Ht 157.5 cm; Wt 44.9 kg
[2017-09-27] MEDS ORDERED: GADAVIST IV PRN (21:30)
--- NOTE | 2017-09-27 21:49 | DIAGNOSTIC IMAGING REPORT ---
MRI OF THE BRAIN WITHOUT AND WITH IV CONTRAST CLINICAL HISTORY: Stroke symptoms. Fall. COMPARISON STUDY: Head CT September 27, 2017. TECHNIQUE: Utilizing a 1.5 Giovanna magnet and dedicated coil, multiplanar, multiecho imaging of the brain was performed pre and postcontrast administration. IV administration of 4.5 mL of Gadavist contrast was uneventful. FINDINGS: There are no foci of restricted diffusion. No acute intracranial hemorrhage, midline shift or mass effect is present. Ventricular system is normal for age. Basilar cisterns are patent. There are no extra-axial collections. Flow-voids for the major intracranial vessels are present. There is no intracranial mass or pathologic enhancement. White matter T2 hyperintense foci suggest extensive small vessel disease. A 8 mm T1 and T2 hyperintense left parietal bone lesion likely reflects a hemangioma. This is benign. A 7 mm T2 hyperintense left basal ganglia lesion could reflect a prominent prevascular space or old lacunar infarct. IMPRESSION: 1. No acute intracranial findings. 2. No intracranial mass or pathologic enhancement. 3. Mild atrophy and extensive small vessel disease. Electronically signed by: Chuck Ortiz M.D. 09/27/2017 9:48 PM Dictated Date/Time: 09/27/2017 9:43 PM
[2017-09-27 22:58] VITALS: BP 151/71; PULSE 80; TEMP 36.7; O2SAT 94
[2017-09-28] VITALS (7 sets, daily range): BP systolic 138–144; BP diastolic 64–73; PULSE 68–78; TEMP 36.8–37.2; O2SAT 92–96
[2017-09-28 06:46] LABS: HEMOGLOBIN A1C 5.8 % (4.5-5.6)
[2017-09-28 06:49] LABS: BASO % 0.4 %; BASO ABS # 0.03 K/uL (0-0.2); EOS % 2.7 %; EOS ABS # 0.19 K/uL (0-0.5); HEMATOCRIT 37.2 % (37-47); HEMOGLOBIN 12.6 g/dL (12.0-16.0); IG# 0.01 K/uL (0.00-0.02); LYMPH ABS # 2.38 K/uL (1.2-3.4); MEAN CELL VOLUME 88.8 fL (80-100); MEAN CORPUSCULAR HEMOGLOBIN 30.1 pg (25-34); MEAN CORPUSCULAR HGB CONC 33.9 g/dl (32-36); MEAN PLATELET VOLUME 8.9 fL (7.4-10.4); MONO % 15.8 %; MONO ABS # 1.11 K/uL (0.11-0.59); NEUT ABS # 3.29 K/uL (1.4-6.5); PLATELET COUNT 264 K/uL (130-400); RED CELL DISTRIBUTION WIDTH CV 14.2 % (11.5-14.5); RED CELL DISTRIBUTION WIDTH SD 45.6 fL (36.4-46.3); WHITE BLOOD COUNT 7.01 K/uL (4.8-10.8)
[2017-09-28 07:25] LABS: CALCIUM 8.5 mg/dl (8.5-10.1); CREATININE 0.58 mg/dl (0.60-1.20); POTASSIUM 3.7 mmol/L (3.5-5.1)
--- NOTE | 2017-09-28 08:31 | Neurology Consultation ---
Neurology Consultation Date of Consultation: Sep 28, 2017. Attending Physician: Efrain Ramirez M.D. Primary Care Physician: Henok Calero MD Reason for Consultation: Consultation for possible stroke History of Present Illness Source: patient, hospital records This is a 87-year-old female who presents after a fall. She reports that she lost her balance on the stairs and fell about 2 steps. She reports hitting her face and nose. Afterwards she appeared to be confused per ER daughter report and not responding appropriately. Patient also reported a brief amount of time in which she seemed to be having trouble getting her words out. Symptoms appear to have improved by the time that she arrived at the emergency room. Patient denied any focal numbness or weakness. Denied any changes in her vision. Denied any dizziness or vertigo. No seizure-like symptoms. Patient had a questionable events back in May in which she reports 5 or 10 minutes were she was having trouble getting her words out in the wrong words were coming out. She was aware that the wrong words were coming out and EMS was called but by the time they got there she was back to normal. Again she denied any focal numbness or weakness with that episode. Denied any changes in vision. No seizure-like symptoms. Patient takes no medications at home. MRI of the brain report and images reviewed by myself. The patient does have mild to moderate T2 hyperintensities in the subcortical white matter consistent with small vessel ischemic disease. No acute strokes Total cholesterol 173, LDL 81, HDL 78, triglycerides 68, hemoglobin A1c 5.8 Past Medical/Surgical History Medical Problems: (1) Facial contusion Status: Acute (2) Fall Status: Acute (3) Fracture of fifth metacarpal bone of left hand Status: Acute (4) TIA (transient ischemic attack) Status: Acute History of a questionable TIA in May 2017 hx of past lumbar surgery? Family History Family history significant for strokes in older age Social History No tobacco use. Patient is normally independent in her activities of daily living. Smokeless Tobacco Use: No Drug Use: none Housing Status: lives alone Occupation Status: retired Allergies Coded Allergies: Cefazolin (Unverified Adverse Reaction, Intermediate, RASH, 09/27/17) Current Inpatient Medications Current Inpatient Medications Medications (Trade) Dose Ordered Sig/Gaudencio Route Start Time Stop Time Status Last Admin Dose Admin Atorvastatin Calcium (Lipitor Tab) 40 mg QAM PO 09/28/17 09:00 1/18/18 08:59 Aspirin (Ecotrin Tab) 81 mg QAM PO 09/28/17 09:00 10/28/17 08:59 Miscellaneous Information (Pharmacist Discharge Med Rec Consult) 1 ea UD PRN N/A 09/27/17 16:45 10/27/17 16:44 Acetaminophen (Tylenol Tab) 650 mg Q4H PRN PO 09/27/17 16:45 10/27/17 16:44 Al Hydrox/Mg Hydrox/Simethicone (Maalox Max Susp) 15 ml Q4H PRN PO 09/27/17 16:45 10/27/17 16:44 Magnesium Hydroxide (Milk Of Magnesia Susp) 30 ml Q12H PRN PO 09/27/17 16:45 10/27/17 16:44 Ondansetron HCl (Zofran Inj) 4 mg Q6H PRN IV 09/27/17 16:45 10/27/17 16:44 Polyethylene (Miralax Powder Packet) 17 gm DAILY PRN PO 09/27/17 16:45 10/27/17 16:44 Hydralazine HCl (HydrALAZINE INJ) 10 mg Q6H PRN IV. 09/27/17 16:45 10/27/17 16:44 Multivitamins/ Minerals (Multivitamin W/ Minerals Tab) 1 tab DAILY PO 09/28/17 09:00 10/28/17 08:59 Gadobutrol (Gadavist) 4.5 mmol UD PRN IV 09/27/17 21:30 10/01/17 21:29 Review of Systems Complete review of systems otherwise negative except for the above noted in history of present illness Physical Exam Vital Signs (Past 24 Hrs): Date Time Temp Pulse Resp B/P (MAP) Pulse Ox O2 Delivery O2 Flow Rate FiO2 09/28/17 08:07 36.8 68 18 138/64 (88) 96 09/28/17 04:00 Room Air 09/28/17 03:05 36.8 76 18 144/69 (94) 94 Room Air 09/27/17 23:59 Room Air 09/27/17 22:58 36.7 80 19 151/71 (97) 94 Room Air 09/27/17 19:23 36.6 90 20 152/83 96 Room Air 09/27/17 18:50 36.6 90 20 152/83 (106) 95 Room Air 09/27/17 18:22 71 18 183/86 96 09/27/17 16:41 73 16 183/86 96 Room Air 09/27/17 14:50 82 18 189/90 95 Room Air 09/27/17 14:50 95 Room Air 09/27/17 12:45 36.4 99 18 188/87 100 Room Air Gen.: Patient is alert and sitting in bed, in no acute distress. HEENT: Normocephalic /atraumatic, no scleral icterus Heart: Regular rate and rhythm Extremities: No rashes noted. Cast on left wrist. Neurological examination: Mental status: Patient is alert and oriented x3. Attention and concentration normal for the situation. Good fund of knowledge. Remote and recent memory intact. Speech is fluent without any dysarthria or aphasia noted Cranial nerve: Funduscopic examination was unremarkable. No papilledema. Pupils equally round and reactive to light. Extraocular muscles intact without nystagmus. No facial asymmetry noted. Facial sensation intact. Tongue is midline. Good palatal elevation. Good shoulder shrug bilaterally. Hearing grossly intact to voice. Strength: 5/5 both proximal and distally in all extremities. There is no arm drift. Tone is normal. Sensation: Grossly intact to light touch in all extremities. Deep tendon reflexes: +1 in bilateral biceps, brachioradialis and patellar. Toes were upgoing to plantar stimulation B/L (hx of past lumbar surgery?) Coordination: Patient had good finger to nose without dysmetria Station within the bed was normal Laboratory Results Past 24 Hours: 09/28/17 06:05 Red Blood Count 4.19, Mean Corpuscular Volume 88.8, Mean Corpuscular Hemoglobin 30.1, Mean Corpuscular Hemoglobin Concent 33.9, Mean Platelet Volume 8.9, Neutrophils (%) (Auto) 47.0, Lymphocytes (%) (Auto) 34.0, Monocytes (%) (Auto) 15.8, Eosinophils (%) (Auto) 2.7, Basophils (%) (Auto) 0.4, Neutrophils # (Auto ) 3.29, Lymphocytes # (Auto) 2.38, Monocytes # (Auto) 1.11, Eosinophils # (Auto ) 0.19, Basophils # (Auto) 0.03 09/28/17 06:05 Test 09/27/17 13:23 09/27/17 13:48 09/28/17 06:05 Prothrombin Time 9.7 SECONDS (9.0-12.0) Prothromb Time International Ratio 0.9 (0.9-1.1) Activated Partial Thromboplast Time 20.8 SECONDS (21.0-31.0) Partial Thromboplastin Ratio 0.8 Estimated Average Glucose 120 mg/dl Hemoglobin A1c 5.8 % (4.5-5.6) Magnesium Level 2.3 mg/dl (1.8-2.4) Total Creatine Kinase 137 U/L (26-192) Creatine Kinase MB 4.8 ng/ml (0.5-3.6) Creatine Kinase MB Ratio 3.5 (0-3.0) Troponin I < 0.015 ng/ml (0-0.045) Urine Color YELLOW Urine Appearance CLOUDY (CLEAR) Urine pH 8.0 (4.5-7.5) Urine Specific Spencer 1.011 (1.000-1.030) Urine Protein NEG (NEG) Urine Glucose (UA) NEG (NEG) Urine Ketones NEG (NEG) Urine Occult Blood NEG (NEG) Urine Nitrite NEG (NEG) Urine Bilirubin NEG (NEG) Urine Urobilinogen NEG (NEG) Urine Leukocyte Esterase NEG (NEG) Urine WBC (Auto) 0 /hpf (0-5) Urine RBC (Auto) 0-4 /hpf (0-4) Urine Hyaline Casts (Auto) 0 /lpf (0-5) Urine Epithelial Cells (Auto) 10-20 /lpf (0-5) Urine Bacteria (Auto) NEG (NEG) White Blood Count 7.01 K/uL (4.8-10.8) Red Blood Count 4.19 M/uL (4.2-5.4) Hemoglobin 12.6 g/dL (12.0-16.0) Hematocrit 37.2 % (37-47) Mean Corpuscular Volume 88.8 fL (80-100) Mean Corpuscular Hemoglobin 30.1 pg (25-34) Mean Corpuscular Hemoglobin Concent 33.9 g/dl (32-36) Platelet Count 264 K/uL (130-400) Mean Platelet Volume 8.9 fL (7.4-10.4) Neutrophils (%) (Auto) 47.0 % Lymphocytes (%) (Auto) 34.0 % Monocytes (%) (Auto) 15.8 % Eosinophils (%) (Auto) 2.7 % Basophils (%) (Auto) 0.4 % Neutrophils # (Auto) 3.29 K/uL (1.4-6.5) Lymphocytes # (Auto) 2.38 K/uL (1.2-3.4) Monocytes # (Auto) 1.11 K/uL (0.11-0.59) Eosinophils # (Auto) 0.19 K/uL (0-0.5) Basophils # (Auto) 0.03 K/uL (0-0.2) RDW Standard Deviation 45.6 fL (36.4-46.3) RDW Coefficient of Variation 14.2 % (11.5-14.5) Immature Granulocyte % (Auto) 0.1 % Immature Granulocyte # (Auto) 0.01 K/uL (0.00-0.02) Anion Gap 6.0 mmol/L (3-11) Est Creatinine Clear Calc Drug Dose 48.4 ml/min Estimated GFR () 96.1 Estimated GFR (Non- 82.9 BUN/Creatinine Ratio 34.0 (10-20) Calcium Level 8.5 mg/dl (8.5-10.1) Triglycerides Level 68 mg/dl (0-150) Cholesterol Level 173 mg/dl (0-200) HDL Cholesterol 78 mg/dl LDL Cholesterol, Calculated 81 mg/dl VLDL Cholesterol, Calculated 14 mg/dl Cholesterol/HDL Ratio 2.2 Imaging As noted above in history of present illness Impression This is an 87-year-old female with what sounds like a mechanical fall down stairs hitting her face and likely brief concussion symptoms of confusion and speech changes afterwards, which are now resolved. Patient did not have any focal numbness or weakness specific for stroke or TIA. 2) signs of [id number] cerebral small vessel ischemic disease on MRI 3) episode of speech changes in May were also nonspecific without any focal symptoms specific for vascular events. Differential diagnosis could also include infection, metabolic changes or derangements, or less likely seizure. Plan Since the patient does have signs of cerebral small vessel ischemic disease, recommend aspirin 81 mg daily. Considering that her lipid profile is within goal, I do not think that she needs a statin medication at this time Follow-up PT/OT and speech therapies for discharge planning. Avoid hypotension and dehydration Vascular risk factor modifications and recommendations: Blood pressure recommendations 140/90-110/70 Total cholesterol goal 100- 200 and LDL goal less than 100 (at goal) Hemoglobin A1c goal less than 7 (at goal) Encourage cardiovascular exercise at least 3 times a week for 30 minutes. If there is any questions or concerns, feel free to call/page me.
[2017-09-28] MEDS ORDERED: CEROVITE ADV FORMULA TAB PO SCH (09:00)
[2017-09-28] MEDS ORDERED: ASPIRIN 81 MG ECTAB PO SCH (09:00)
[2017-09-28] MEDS ORDERED: ATORVASTATIN 40 MG TAB PO SCH (09:00)
[2017-09-28] MEDS ORDERED: ASPEC81 PO (09:50)
--- NOTE | 2017-09-28 09:56 | Discharge Instructions ---
Discharge Instructions Date of Service Sep 28, 2017. Admission Reason for Admission: Facial Contusion, Fall, Fracture Of 5TH Metacarpal Discharge Discharge Diagnosis / Problem: Fall, Left Hand Fracture Discharge Goals Goal(s): Decrease discomfort, Improve function, Increase independence Activity Recommendations Activity Limitations: resume your previous activity . Instructions / Follow-Up Instructions / Follow-Up You were admitted to [facility] following a fall and episode where you were unable to form appropriate sentences. Below are the medical problems addressed during your stay: 1) Fall - you sustained a fracture of your left hand - this was splinted, and will require a cast - we are setting up a follow up appointment with Dr. Le for this - you also had a CT scan of the bones in your face, as well as your neck to ensure that nothing was broken, this came back normal 2) Speech Difficulties - your CT brain showed some chronic changes, but no acute stroke - your MRI of your brain was normal - you were seen by our neurologist, Dr. Bo who recommends that you take a baby aspirin everyday We recommend you follow up with your primary care doctor. If you experience a worsening headache, double vision, trouble walking or weakness in your arms or legs, please seek medical attention. Current Hospital Diet Patient's current hospital diet: AHA Diet (Heart Healthy) Discharge Diet Recommended Diet: AHA Diet (Heart Healthy) Pending Studies Studies pending at discharge: no Laboratory Results Hemoglobin A1c Test 09/27/17 13:23 Range/Units Estimated Average Glucose 120 mg/dl Hemoglobin A1c 5.8 H 4.5-5.6 % Lipid Panel Test 09/28/17 06:05 Range/Units Triglycerides Level 68 0-150 mg/dl Cholesterol Level 173 0-200 mg/dl HDL Cholesterol 78 mg/dl Cholesterol/HDL Ratio 2.2 LDL Cholesterol, Calculated 81 mg/dl Medical Emergencies . Who to Call and When: Medical Emergencies: If at any time you feel your situation is an emergency, please call 911 immediately. . Non-Emergent Contact Non-Emergency issues call your: Primary Care Provider . . "Provider Documentation" section prepared by Vanessa Escamilla. . VTE Core Measure Inpt VTE Proph given/why not?: SCD's
--- NOTE | 2017-09-28 10:12 | Discharge Summary ---
Discharge Summary Date of Service Sep 28, 2017. Discharge Summary Admission Date: Sep 27, 2017 at 16:52 Discharge Date: Sep 28, 2017 Discharge Disposition: Home Principal Diagnosis: Mechanical Fall Problems/Secondary Diagnoses: 1) Fracture of 5th metacarpal Procedures: FACIAL BONES-MXILLOFAC WITHOUT CLINICAL HISTORY: 87 years-old Female presenting with fall. TECHNIQUE: Multidetector CT of the face was performed without the use of intravenous contrast. IV contrast: None. A dose lowering technique was used consistent with the principles of ALARA (as low as reasonably achievable). COMPARISON: None. CT DOSE (mGy.cm): The estimated cumulative dose is 1003.11 mGy.cm. FINDINGS: Repair Electric Motor Assembler topogram: Unremarkable. Polypoid mucosal thickening in the left maxillary sinus. Paranasal sinuses and mastoid air cells otherwise clear. Bilateral nez perce lenses are absent. Orbits otherwise normal. Remaining soft tissues of the face within normal limits allowing for noncontrast technique. Evidence of a torus palatinus. Degenerative changes of the cervical spine. Limited intracranial evaluation within normal limits. IMPRESSION: No acute osseous injury of the face. HEAD WITHOUT CONTRAST (CT) CLINICAL HISTORY: 87 years-old Female with Stroke. Acute strokelike symptoms TECHNIQUE: Multiple axial CT images of the head were obtained without contrast. A dose lowering technique was utilized adhering to the principles of ALARA. COMPARISON: CT cervical spine of same day. FINDINGS: No acute intracranial hemorrhage, midline shift, intracranial mass, hydrocephalus, territorial ischemia or abnormal extra-axial collection. Mild brain atrophy. Ill-defined areas of low attenuation within the subcortical and periventricular white matter suggests chronic microvascular ischemic changes. Vascular calcifications are seen at the level of the skull base. Focal 4 mm area of low-attenuation of the left lentiform nucleus on image 10 series 2. The calvarium is intact. The paranasal sinuses, mastoid air cells, and middle ear cavities are clear. Prior bilateral cataract repair. IMPRESSION: 1. No acute intracranial hemorrhage, midline shift or territorial ischemia. 2. Mild atrophy with chronic microvascular ischemic changes. 4 mm area of low-attenuation involving the left lentiform nucleus suggests age-indeterminate lacunar infarction. L HAND MIN 3 VIEWS ROUTINE CLINICAL HISTORY: Left hand pain status post trauma COMPARISON: None. DISCUSSION: The bones are osteopenic. There is an old distal radial deformity. There are moderate arthritic changes present the level the first carpometacarpal joint, metacarpal phalangeal joints, and interphalangeal joints. There is an acute oblique/spiral fracture of the midshaft of the fifth metacarpal demonstrating 3.7 mm of maximal displacement. IMPRESSION: Acute oblique/spiral fracture involving the midshaft of the fifth metacarpal CHEST ONE VIEW PORTABLE CLINICAL HISTORY: 87 years-old Female presenting with Stroke. TECHNIQUE: Portable upright AP view of the chest was obtained. COMPARISON: None. FINDINGS: Atherosclerosis of aortic arch. Cardiac silhouette normal in size. Mild hyperinflation suggested. Lungs and pleural spaces clear. Scoliotic curvature of the thoracic spine. Degenerative changes of the right shoulder. Upper abdomen normal. IMPRESSION: 1. Mild hyperinflation suggested, which may reflect underlying emphysema. No other evidence of acute cardiopulmonary disease. CT OF THE CERVICAL SPINE CLINICAL HISTORY: Neck pain status post trauma COMPARISON STUDY: No previous studies for comparison. CT DOSE: TECHNIQUE: CT scan of the cervical spine was performed from the skull base to the thoracic inlet. Images are reviewed in the axial, sagittal, and coronal planes. IV contrast was not administered for this examination. A dose lowering technique was utilized adhering to the principles of ALARA. FINDINGS: Visualized portions lung apices reveal no evidence of pneumothorax. There are nonspecific biapical nodular opacities, likely representing areas of apical scarring. The prevertebral soft tissues are normal. No fractures or traumatic subluxations are visualized. There are multilevel degenerative changes. There is fusion of the C7 and T1 posterior elements. There is 3 mm of anterior subluxation of C4 on C5. This is felt to be arthritic. There is a disc osteophyte complex at the C5-6 level. IMPRESSION: No evidence of acute fracture or traumatic subluxation. Normal EKG (Sinus rhythm at 69 bpm, no ischemic changes) MRI OF THE BRAIN WITHOUT AND WITH IV CONTRAST CLINICAL HISTORY: Stroke symptoms. Fall. COMPARISON STUDY: Head CT September 27, 2017. TECHNIQUE: Utilizing a 1.5 Giovanna magnet and dedicated coil, multiplanar, multiecho imaging of the brain was performed pre and postcontrast administration. IV administration of 4.5 mL of Gadavist contrast was uneventful. FINDINGS: There are no foci of restricted diffusion. No acute intracranial hemorrhage, midline shift or mass effect is present. Ventricular system is normal for age. Basilar cisterns are patent. There are no extra-axial collections. Flow-voids for the major intracranial vessels are present. There is no intracranial mass or pathologic enhancement. White matter T2 hyperintense foci suggest extensive small vessel disease. A 8 mm T1 and T2 hyperintense left parietal bone lesion likely reflects a hemangioma. This is benign. A 7 mm T2 hyperintense left basal ganglia lesion could reflect a prominent prevascular space or old lacunar infarct. IMPRESSION: 1. No acute intracranial findings. 2. No intracranial mass or pathologic enhancement. 3. Mild atrophy and extensive small vessel disease. Consultations: Dr. Bo - Neurology Medication Reconciliation New Medications: Aspirin (Aspirin EC Low Dose) 81 Mg Ectab 81 MG PO QAM for 30 Days, #30 TABS 3 Refills Continued Medications: Multiple Vitamins W/ Minerals (Centrum Silver Adult 50+) 1 Tab Tab 1 TAB PO DAILY Discharge Exam Ms. Yanez reports she feels well today. She denies headache, trouble with vision or gait, weakness in her arms or legs, chest pain or shortness of breath. She states her left arm is not painful and that she is eager to be discharged. She has not had any trouble with speech after her previous episode yesterday. Review of Systems: Constitutional: No fever, No chills Respiratory: No cough, No sputum, No wheezing, No shortness of breath Cardiovascular: No chest pain Abdomen: No pain, No nausea, No vomiting, No diarrhea, No constipation Musculoskeletal: No joint pain, No calf pain Physical Exam: General Appearance: WD/WN, no apparent distress Respiratory/Chest: chest non-tender, lungs clear, normal breath sounds, no respiratory distress, no accessory muscle use Cardiovascular: regular rate, rhythm, no edema, no gallop, no JVD, no murmur , normal peripheral pulses Abdomen / GI: normal bowel sounds, non tender, soft, no organomegaly, no pulsatile mass Extremities: + pertinent finding (left hand in splint, neurovascularly intact) Neurologic/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 Yanez is an 87 year old female with a history of a possible TIA in May 2017 who presented to [facility] following a ten minute episode of aphasia that occurred after a mechanical fall. Aphasia - CT brain showed - no acute intracranial hemorrhage, but a 4 mm area of low- attenuation involving the left lentiform nucleus suggesting an age- indeterminate lacunar infarction. 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 Total cholesterol 173 and LDL 81 --> Hemoglobin A1c goal less than 7 (at goal) - HbA1c at 5.8 --> Encourage cardiovascular exercise at least 3 times a week for 30 minutes. Mechanical Fall - CT C-spine negative, Maxillofacial CT negative - Left hand xray = acute oblique/spiral fracture involving the midshaft of the fifth metacarpal - hand currently in splint, no pain reported - follow up with orthopedics for cast Resident Physician Supervision Note: I interviewed and examined the patient. Discussed with Dr. Vanessa Escamilla and agree with findings and plan as documented in the note. Any exceptions or clarifications are listed here: None Patient presents with a period of aphasia and subsequent fall sustaining a fractured her left fifth metacarpal. Initial CT in the ER shows an age- indeterminate lacunar infarction.. She supports this could possibly have been her [place] episode. Follow up MRI of the brain did not confirm a new CVA, She continue to have no current deficits of speech or physical exam except for pain at her metacarpal fracture site Her vital signs are astable Cranial nerves II through XII are intact speech remains fluent cranial nerve testing continues to be intact there is no palmar drift or dysmetria extremities are equal symmetric with strength TIA fall with traumatic left metacarpal fracture Neurology recommends aspirin daily but no statin as not confirmed acute CVA, feels word finding may have been subsequent to fall For metacarpal fracture she is splinted likely will need orthopedic follow-up and splinting Documented By: Efrain Ramirez Total Time Spent: Greater than 30 minutes This includes examination of the patient, discharge planning, medication reconciliation, and communication with other providers. Discharge Instructions Please refer to the electronic Patient Visit Report (Discharge Instructions) for additional information. Additional Copies To Henok Calero MD; Bony Le M.D. Resident Tracking Resident Involvement: Resident Care Provided Care Provided: Adult [facility]
--- NOTE | 2017-11-29 05:34 | EDITING REQUIRED CODING QUERY ---
CODING QUERY To promote full compliance with coding requirements relating to patient care, provider participation is requested in all cases of esthetician and manager medical spa uncertainty. Please assist us with the question(s) below: Coding Question: Both "TIA fall with traumatic left metacarpal fracture", and "likely not a TIA, but a mechanical fall" was documented in the record; please clarify below to the best of your knowledge. Thank you so much for your help! Have a great day! () TIA, present on admission (x) TIA, ruled out () Other, explain Thank you! Kari Schmitz Principal Diagnosis: "_that condition established after study, to be chiefly responsible for occasioning the admission of the patient to the hospital for care." Co-Existing Principal Diagnosis: "_when two or more diagnoses equally meet the criteria for principal diagnosis as determined by the circumstances of admission, diagnostic work up, and/or therapy provided, and the Alphabetic Index, Tabular List, or another coding guideline does not provide sequencing direction, any one of the diagnoses may be sequenced first." "When the physician has documented what appears to be a current diagnosis in the body of the record, but has not included the diagnosis in the final diagnostic statement, the physician should be asked whether the diagnosis should be added." (Source Coding [facility] 2 QTR90. p3-4)
== END 2017-09-28 12:41 | disposition home or self-care (01) | DRG 563 ==
LOC: C.EDB 12:44 → C.2T 16:52 → ENRESERV 18:02
PROVIDERS: ADMIT Internal Medicine; ATTEND Internal Medicine
DX: S62.307A Unspecified fracture of fifth metacarpal bone, left hand, initial encounter for closed fracture (principal); R47.01 Aphasia; S00.83XA Contusion of other part of head, initial encounter; W10.9XXA Fall (on) (from) unspecified stairs and steps, initial encounter; Z86.73 Personal history of transient ischemic attack (TIA), and cerebral infarction without residual deficits; Y92.009 Unspecified place in unspecified non-institutional (private) residence as the place of occurrence of the external cause